=== PATIENT | female | born 1990 | race Caucasian/White ===

== ENCOUNTER → 2017-09-21 | Outpatient (CLI) | payer MEDICAID ==
[~2017-09-21] MED LIST: DILAUDID4 MG PO; IRON TABLETS325 MG PO; MOTRIN 400MG.400 MG PO; NOMEDS XX; PROGESTERONE100 M1 VG
[2017-09-21 16:25] LABS: LYMPH # 1.5 K/mm3 (0.7-4.5); LYMPH % 16.5 % (10-50.0)
[2017-09-21 16:50] LABS: HEMOGLOBIN 14.1 g/dL (12.2-16.2)
[2017-09-21 18:46] LABS: ABO BLOOD TYPE O; RH BLOOD TYPE POSITIVE
[2017-09-23 06:37] LABS: HIV Screen 4th Generation wRfx Non Reactive (Non Reactive); Rubella Antibodies, IgG 2.73 index (Immune >0.99)
[2017-09-23 08:47] LABS: HBsAg Screen Negative (Negative); Hep C Virus Ab <0.1 (0.0-0.9)
[2017-09-23 09:37] LABS: Rapid Plasma Reagin, Quant Non Reactive (NonRea<1:1)
== END ==
LOC: LAB 15:19
PROVIDERS: Nurse Practitioner Obstetrics & Gynecology
DX: Z34.80 Encounter for supervision of other normal pregnancy, unspecified trimester (principal)
CPT/HCPCS: G0432